=== PATIENT | female | born 1955 | race Caucasian/White ===

== ENCOUNTER 2016-12-25 08:58 | Observation (INO) | payer OTHER ==
[~2016-12-25] VITALS: Ht 167.6 cm; Wt 123.8 kg
[2016-12-25] VITALS (8 sets, daily range): BP systolic 99–134; BP diastolic 46–74
[~2016-12-25 08:58] MED LIST: ALLO300T PO; BUPIVACAINE-EPI 0.25%-1:200000 50 ML VIAL. ONE; CLINDAMYCIN 600MG PREMIX 50 ML IV PRN; GABA-586 PO; HYDR12.53 PO; HYDROmorphone 2 MG/ML VIAL IV PRN; IV RINGERS,LACTATED 1000ML 1,000 ML IV SCH; LIDOCAINE 1% PF 2 ML VIAL. ID PRN; MORPHINE SULFATE 2 MG/ML DISP.SYRIN. IV PRN; ONDANSETRON PF 4 MG/2 ML VIAL. IV PRN; PROCHLORPERAZINE 10 MG/2 ML VIAL. IV PRN; fentaNYL PF VIAL 100 MCG/2 ML VIAL IV PRN
[2016-12-25] MEDS ORDERED: LIDOCAINE 2% PF Vial for OR 5 ML VIAL. ONE (09:18)
[2016-12-25] MEDS ORDERED: DEXAMETHASONE SOD PHOS 20 MG/5 ML VIAL. ONE (09:18)
[2016-12-25] MEDS ORDERED: GLYCOPYRROLATE 1 MG/5 ML VIAL. ONE (09:18)
[2016-12-25] MEDS ORDERED: fentaNYL PF VIAL 100 MCG/2 ML VIAL ONE (09:18)
[2016-12-25] MEDS ORDERED: PROPOFOL 20 ML IV ONE (09:18)
[2016-12-25] MEDS ORDERED: ROCURONIUM 50 MG/5 ML VIAL. ONE ×2 (09:18→11:35)
[2016-12-25] MEDS ORDERED: ONDANSETRON PF 4 MG/2 ML VIAL. ONE (09:18)
[2016-12-25] MEDS ORDERED: SCOPOLAMINE 1.5MG PATCH. TD ONE (10:30)
[2016-12-25] MEDS ORDERED: PHENYLEPHRINE 10 MG/ML VIAL. ONE (11:20)
[2016-12-25] MEDS ORDERED: SEVOFLURANE 61 TO 120 MINUTES. IH ONE (11:52)
[2016-12-25] MEDS ORDERED: ESTROGENS, CONJ VAGINAL CREAM 30GM TUBE. ONE (12:19)
[2016-12-25] MEDS ORDERED: KETOROLAC 30 MG/ML INJ FOR OR. INJ ONE (12:24)
--- NOTE | 2016-12-25 12:38 | PDOC ---
BRIEF OPERATIVE NOTE Date: Dec 25, 2016 Pre-Op Diagnosis complex endometrial hyperplasia, postmenopausal bleeding Post-Op Diagnosis same Procedure Performed lavh and bso Surgeon Emmanuel Water/Wastewater Project Manager Abner Anesthesiologist yes Anesthesia Type: General Blood Loss 50cc IV Fluid see anesthesia Urine Output 275cc- clear. Was intermittently blood tinged during the procedure, but was clear at the end Specimens Obtained uterus, tubes, ovaries Findings see dictation Complications none KENZIE TORRES MD Dec 25, 2016 12:38
--- NOTE | 2016-12-25 12:39 | DISCH ---
DISCHARGE INSTRUCTIONS Condition on Discharge Condition on Discharge: Stable Activity After Discharge Activity Instructions for Disc: Avoid exertion, Progressive ambulation Lifting Instructions after Dis: No heavy lifting, No pulling or pushing, Do not lift >10 pounds Exercise Instruction after Dis: Progress as tolerated Driving Instructions after Dis: No driving for 2 weeks Weight Bearing Status after Di: As tolerated Diet after Discharge Diet after Discharge: Regular Wound Incision Care Wound/Incision Care: Ice to area for comfort, May get incision wet Contacting the DR. after DC Call your doctor for: If your condition worsens Follow-Up Follow up with: 1 week with KENZIE Arce MD Dec 25, 2016 12:39
[2016-12-25] MEDS ORDERED: NALOXONE 0.4 MG/ML VIAL. IV PRN (12:45)
[2016-12-25] MEDS ORDERED: IBUPROFEN 600 MG TABLET. PO PRN (12:45)
[2016-12-25] MEDS ORDERED: HYDROcodone/APAP 5/325MG 1 TAB TABLET PO PRN (12:45)
[2016-12-25] MEDS ORDERED: ONDANSETRON PF 4 MG/2 ML VIAL. IV PRN (12:45)
[2016-12-25] MEDS ORDERED: SIMETHICONE 80 MG TAB.CHEW PO PRN (12:45)
[2016-12-25] MEDS ORDERED: BISACODYL 10 MG SUPP.RECT. PR PRN (12:45)
[2016-12-25] MEDS ORDERED: ZOLPIDEM 5 MG TABLET. PO PRN (12:45)
[2016-12-25] MEDS ORDERED: METOCLOPRAMIDE HCL 10 MG/2 ML VIAL. IV PRN (12:45)
[2016-12-25] MEDS ORDERED: LACTULOSE 20 GM/30 ML SOLUTION. PO PRN (12:45)
[2016-12-25] MEDS ORDERED: HYDROmorphone 2 MG/ML VIAL IM PRN (12:45)
[2016-12-25] MEDS ORDERED: KETOROLAC 30 MG/ML INJ. IV PRN (12:45)
[2016-12-25] MEDS ORDERED: 0.9 % SODIUM CHLORIDE 10 ML DISP.SYRIN. IV PRN (12:45)
[2016-12-25] MEDS ORDERED: HYDROmorphone 2 MG/ML VIAL IV PRN (12:45)
[2016-12-25] MEDS ORDERED: diphenhydrAMINE HCL 25 MG CAPSULE PO PRN (12:45)
[2016-12-25] MEDS ORDERED: CALCIUM CARBONATE 500 MG TAB.CHEW PO PRN (12:45)
[2016-12-25] MEDS ORDERED: diphenhydrAMINE 50 MG/ML VIAL IV PRN (12:45)
[2016-12-25] MEDS ORDERED: MAG HYDROX/ALUMINUM HYD/SIMETH 30 ML ORAL.SUSP PO PRN (12:45)
--- NOTE | 2016-12-25 13:36 | OP ---
DATE OF SURGERY: 12/25/2016 PREOPERATIVE DIAGNOSES: Complex endometrial hyperplasia and postmenopausal bleeding. POSTOPERATIVE DIAGNOSES: Complex endometrial hyperplasia and postmenopausal bleeding. PROCEDURE: LAVH and BSO. SURGEON: Jazlyn Torres MD and Abner. ANESTHESIA: General. ESTIMATED BLOOD LOSS: Approximately 50 mL. INTRAVENOUS FLUIDS: See anesthesia summary. URINE OUTPUT: About 275 mL of clear urine. The urine was intermittently blood tinged during the middle of the procedure, but actually had cleared by the end. SPECIMENS: Uterus, tubes, and ovaries. COMPLICATIONS: None. DESCRIPTION OF PROCEDURE: After informed consent was obtained, the patient was taken to the operating room and given a smooth induction of anesthesia without complication. The patient was placed in David stirrups and her perineum, vagina and abdomen were prepped and draped in the usual sterile fashion. A Pena catheter had been placed. She also received clindamycin and Levaquin prior to the procedure onset. A weighted speculum was placed in the vagina and the anterior lip of the cervix was grasped with a single tooth tenaculum. The cervix was infiltrated at the cervicovaginal junction with 0.25% Marcaine, 10 mL total was used at 2, 4, 8 and 10 o'clock on the cervix. We then placed a uterine manipulator through the cervical os and attached it to the tenaculum. The speculum was then removed. We then went above to place the trocar. I changed gloves before I did this. A 5 mm incision was made just above the umbilicus. A bladeless trocar was placed onto this incision. We had to use the extra long trocar because of the patient's morbid obesity. The patient was then placed in Trendelenburg. After the patient was placed in Trendelenburg she began sliding up the bed, so we actually had to reverse her and pull her back down. This had to actually be done twice during the procedure. We were finally able to find just the right amount of Trendelenburg that would not allow her to move up the bed, but allowed us to still do the procedure. We placed two lateral 5 mm ports in the lateral abdominal wall. This was done under direct visualization, one was on the right, one was on the left. We then proceeded to use the LigaSure to cauterize across the round ligament bilaterally. This ligament was transected and we then created a bladder flap anteriorly. This was also somewhat difficult due to the patient's large amount of fatty bowel that was in her abdominal cavity, it was very difficult to get good visualization. We were able to elevate the tube and ovary on the right up away from the sidewall. We were able to visualize the ureter on the right side, but had more difficulty looking at it on the left side. We were able to cauterize across the IP ligament and transected so that the ovary was free. We then removed the tube and ovary from the sidewall. We then proceeded to cauterize the uterine vessels. Same procedure was carried out on the left side. Once the tube and ovary were free, we again started cauterizing down the sides of the uterine vessels on both sides. The bladder was retracted inferiorly without much difficulty. Once everything was free, we went down below. The speculum was placed back in the vagina and the tenaculum and Valtchev were removed. We placed two Brendon thyroid clamps on the cervix. This was actually very difficult, the patient's vagina was very narrow and very friable. She had several small little vaginal lacerations that had to be repaired at the end due to the retractors. We created a circumferential incision around the cervix using the long-handled knife. We retracted the bladder anteriorly using blunt dissection with a Ray-Abhi. We then entered the posterior peritoneum using sharp dissection. We then used the 2 Jonathon transfixion sutures to clamp, cut and ligate the cardinal uterosacral complex. This was then tacked to the lateral vaginal sidewalls and saved for later use on both sides. We then proceeded to use the vaginal LigaSure down below to cauterize what was left of the uterine arteries and removed the uterus from the pelvis. The uterus was actually very small. It was removed with both ovaries and one tube actually got left behind, but we removed it abdominally later. Once the uterus was removed, the peritoneum was closed with a running pursestring suture of 2-0 Vicryl and then the vaginal cuff was closed with a running locking stitch of 2-0 Vicryl. Again, at this point, we noticed several small vaginal lacerations, which were repaired with interrupted suture of 2-0 Vicryl. The vagina was packed, nothing was bleeding heavily. The packing was more for just some pressure. Packing had Premarin cream on it. We then went back above to irrigate the pelvis. Again, the patient was placed in a little bit of Trendelenburg. Once the cuff was visualized and it was noted to be completely hemostatic, we did irrigate the pelvis. Again, no bleeding was noted. We sprayed Tisseel on all the raw surfaces. At this point, the ports were removed under direct visualization. No bleeding was noted. The port sites were closed with an interrupted suture of 4-0 nylon and infiltrated with anesthetic for patient comfort. We did let the gas escape from the belly first. At this point, the patient tolerated the procedure well. There were no complications. We terminated the procedure. JAZLYN TORRES MD DR: MARILIA/tia JOB#: [id number] / [id number]
[2016-12-25] MEDS: GABAPENTIN 300 MG CAPSULE. PO SCH ×2 (14:00→21:35)
[2016-12-25] MEDS: hydroCHLOROthiazide 12.5 MG CAPSULE PO SCH (14:00)
[2016-12-26] MEDS: oxyCODONE/APAP 5/325 1 TAB TABLET PO PRN ×2 (00:26→06:12)
[2016-12-26 01:59] VITALS: BP 106/47
[2016-12-26 05:57] VITALS: BP 105/51
[2016-12-26] MEDS: GABAPENTIN 300 MG CAPSULE. PO SCH (08:26)
[2016-12-26] MEDS: hydroCHLOROthiazide 12.5 MG CAPSULE PO SCH (08:26)
--- NOTE | 2016-12-26 08:41 | PDOC ---
SURGICAL PROGRESS NOTE Subjective doing well. No complaints. No bleeding and minimal pain. Catheter out and eating regular diet Vital Signs Vital Signs Date Time Temp Pulse Resp B/P (MAP) Pulse Ox O2 Delivery O2 Flow Rate FiO2 12/26/16 06:12 Room Air 12/26/16 05:57 98.1 71 16 105/51 (69) 96 98.1 12/25/16 13:16 10 PATIENT HAS A GANDARA: No General: Alert, Oriented X3, Cooperative, No acute distress Abdomen: Normal bowel sounds, Soft, No tenderness, No hepatosplenomegaly, No masses, Other (incisions c/d/i) Extremities: No clubbing, No cyanosis, No edema, Normal pulses, No tenderness/ swelling Labs Laboratory Tests Test 12/25/16 16:50 Hematocrit 41.8 % (36.0-47.0) Laboratory Tests Test 12/25/16 16:50 Hematocrit 41.8 % (36.0-47.0) I have reviewed the following labs, vitals Assessment/Plan POD #1 from [facility] and bso for complex endometrial hyperplasia. Plan is for discharge today Problems: KENZIE TORRES MD Dec 26, 2016 08:41
--- NOTE | 2016-12-26 08:44 | PDOC3 ---
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 Albert is a 61 old F who presented with complex endometrial hyperplasia seen on D and C specimen. She presented yesterday for lavh and bso. She underwent the planned procedure without difficulty. She is doing well. She is ambulating and tolerating her diet. She is ready for discharge. Hct is 41 post surgery. Discharge Information Scheduled Allopurinol (Allopurinol), 1 TAB PO DAILY, (Reported) Gabapentin (Gabapentin), 300 MG PO TID, (Reported) Hydrochlorothiazide (Hydrochlorothiazide Capsule ), 1 CAP PO DAILY, (Reported ) KENZIE TORRES MD Dec 26, 2016 08:44
[2016-12-26] MEDS ORDERED: ALLOPURINOL 300 MG TABLET. PO SCH (09:00)
[2016-12-26 11:48] VITALS: BP 121/61
--- NOTE | 2016-12-29 14:21 | PATHOLOGY ---
PATHOLOGY REPORT * * * * * * * * FINAL DIAGNOSIS: Uterus with attached right fallopian tube and ovary and left ovary and detached left fallopian tube, laparoscopic-assisted vaginal hysterectomy with bilateral salpingo-oophorectomy: - Complex and focal atypical endometrial hyperplasia. - Nabothian cysts and small hemangioma, uterine cervix. - Leiomyomas (2) uterine corpus, small. - Adenomyosis, uterine corpus, focal. - Congestion and involutional changes of bilateral fallopian tubes. - Involutional changes of bilateral ovaries with small serous inclusion cysts and calcifications of left ovary. COMMENT: The entire endometrium is submitted for histologic evaluation. There is complex and focal atypical endometrial hyperplasia. There is no evidence of malignancy. (JPM:mm; 12/29/2016) REPORT ELECTRONICALLY SIGNED BY: Benito Edge M.D. DATE/TIME: 12/29/2016 14:19 * * * * * * * * GROSS PATHOLOGY: The specimen is received in formalin labeled "Carlton Rai, uterus with cervix and bilateral fallopian tubes and ovaries". Received is a 38 g, 7.4 x 3.5 x 2.7 cm uterus with attached cervix with attached left ovary weighing 1 g, attached right adnexa weighing 3 g, and detached left fallopian tube weighing 2 g. The uterine serosa is pink-bean and smooth in appearance. The 1.0 cm cervical os is surrounded by pink-bean, moderately disrupted ectocervical mucosa. The uterus is oriented using the ovarian placement and the anterior paracervical margin is inked black. The uterus is opened laterally to reveal a pink-bean endocervical canal measuring 2.8 cm in length. The endometrial cavity is triangular measuring 3.4 cm in length by 2.2 cm in width. The endometrium is pink-bean, glistening to shaggy in appearance and measures 0.1 cm in thickness. Serial sectioning reveals a bean-pink, trabeculated myometrium measuring up to 1.5 cm in thickness displaying 2 intramural fibroids measuring 0.3 cm each. The left adnexa consists of a detached fimbriated fallopian tube measuring 4.7 cm in length by up to 0.5 cm in diameter and a 1.4 x 1.2 x 0.8 cm ovary. Sectioning through the fallopian tube reveals a patent lumen and displays an attached paratubal cyst measuring 0.2 cm. Sectioning through the ovary reveals pale bean, normal ovarian stroma. The right adnexa consists of a fimbriated fallopian tube measuring 4.5 cm in length by up to 0.6 cm in diameter attached to a 1.8 x 1.1 x 0.8 cm ovary. Sectioning through the fallopian tube reveals a patent lumen and the fallopian tube appears grossly unremarkable. Sectioning through the ovary reveals pale bean, normal ovarian stroma. The entire endometrium and additional farm loan representative sections are submitted as follows: A1 12:00 and 6:00 cervix A2 full-thickness cross section of anterior endomyometrium with intramural fibroids A3-A4 remainder of anterior endometrium A5 full-thickness cross section of posterior endomyometrium A6-A8 remainder of posterior endometrium A9 left adnexa A10 right adnexa. (CAA; 12/26/2016) INITIAL CPT CODE(S): A; 13346 Professional services performed [place] [facility] [place] [address] Technical services performed by [facility] at [address] [place] [address], [address] [address]. SPECIMEN(S) RECEIVED: A.Uterus with cervix and bilateral fallopian tubes and ovaries CLINICAL HISTORY: Complex endometrial hyperplasia, postmenopausal bleeding PATIENT: CARLTON RAI /AGE: 709/09/1955 (Age: 61) PATIENT #: [id number] ALT CASE #: SPECIMEN COLLECTION DATE: 12/25/2016 SPECIMEN RECEIVED DATE: 12/25/2016 [facility] - [address] [place] [address] - PHONE: [phone] * * * END OF REPORT * * *
== END 2016-12-26 14:28 | disposition home or self-care (01) ==
LOC: SURG 08:58 → 3 NORTH 13:39
PROVIDERS: ADMIT Obstetrics & Gynecology; ATTEND Obstetrics & Gynecology
DX: N85.02 Endometrial intraepithelial neoplasia [EIN] (principal); N95.0 Postmenopausal bleeding; E66.01 Morbid (severe) obesity due to excess calories; E03.9 Hypothyroidism, unspecified; E78.5 Hyperlipidemia, unspecified
CPT/HCPCS: 36415; 58552; 85014; 86850; 86900; 86901; 88309; 96374; 96375; C1769; G0378; G0379; J1100; J1885; J1956; J2405; J2704; J3010; J3490; J7030; J7120; J2001

== ENCOUNTER → 2017-04-09 | Outpatient (CLI) | payer BC | END | disposition home or self-care (01) | LOC: KCIC MAMMO 09:41 | DX: Z12.31 Encounter for screening mammogram for malignant neoplasm of breast (principal) | CPT/HCPCS: 77067 ==

== ENCOUNTER → 2018-06-16 | Outpatient (CLI) | payer BC ==
[~2018-06-16] MED LIST changes: -BUPIVACAINE-EPI 0.25%-1:200000 50 ML VIAL. ONE; -CLINDAMYCIN 600MG PREMIX 50 ML IV PRN; -GABA-586 PO; +GABA300C18 PO; -HYDR12.53 PO; +HYDR12.575 PO; -HYDROmorphone 2 MG/ML VIAL IV PRN; -IV RINGERS,LACTATED 1000ML 1,000 ML IV SCH; -LIDOCAINE 1% PF 2 ML VIAL. ID PRN; -MORPHINE SULFATE 2 MG/ML DISP.SYRIN. IV PRN; -ONDANSETRON PF 4 MG/2 ML VIAL. IV PRN; -PROCHLORPERAZINE 10 MG/2 ML VIAL. IV PRN; -fentaNYL PF VIAL 100 MCG/2 ML VIAL IV PRN
--- NOTE | 2018-06-16 16:44 | KCIC ---
Bilateral digital screening mammograms with 3-D tomosynthesis: Reason for examination: Routine screening. Comparison is made to previous studies dated 04/09/2017 and 01/09/2016. Bilateral mammograms in CC and oblique projections were obtained with 2-D imaging and 3-D tomosynthesis imaging on a [employer] Inspiration unit and reviewed on the workstation. Interpretation was made with the benefit of CAD. The skin and nipples show no abnormalities. No abnormal axillary lymph nodes are seen. The breast parenchyma is predominantly fatty. (Breast density: Category A.) There are no dominant masses, suspicious calcifications or architectural distortion. Impression: No evidence of malignancy. Recommend routine screening. BI-RAD Category 1: Negative. "Our facility is accredited by the [employer] Mammography Program." This patient's information has been entered into a reminder system for the patient to be notified with the results of her examination and a target date for the next mammogram. Electronically signed by: Jessica Martínez MD (06/16/2018 4:41 PM) [id number]
== END | disposition home or self-care (01) ==
LOC: KCIC MAMMO 09:37
PROVIDERS: ATTEND Family Medicine
DX: Z12.31 Encounter for screening mammogram for malignant neoplasm of breast (principal); R92.8 Other abnormal and inconclusive findings on diagnostic imaging of breast
CPT/HCPCS: 77063; 77067

== ENCOUNTER → 2019-04-21 | Outpatient (CLI) | payer MEDICARE ==
--- NOTE | 2019-04-21 09:57 | KCIC ---
Indication: Postmenopausal screening for osteoporosis. COMPARISON: None available. Bone Density: -BMD: (g/cm2) - AP Spine Total (L1-L4).......... 1.422. - Total left Hip................. 1.133. T-Score: - AP Spine Total (L1-L4)......... 3.4. - Total left Hip................. 1.6. Z-Score: - AP Spine Total (L1-L4).......... 5.2. - Total left Hip................. 2.8. World Health Organization criteria for BMD interpretation classify patients as Normal (T-score at or above -1.0), Osteopenic (T-score between -1.0 and -2.5), or Osteoporotic (T-score at or below -2.5). Impression: 1. AP Spine Total L1-L4--- normal.. 2. Total left Hip--- normal. Electronically signed by: Jordin Duran MD (04/21/2019 9:54 AM) [place]
== END | disposition home or self-care (01) ==
LOC: KCIC DEXA 08:56
PROVIDERS: ATTEND Family Medicine
DX: Z13.820 Encounter for screening for osteoporosis (principal); Z78.0 Asymptomatic menopausal state
CPT/HCPCS: 77080

== ENCOUNTER → 2019-10-20 | Outpatient (CLI) | payer MEDICARE ==
--- NOTE | 2019-10-21 17:15 | KCIC ---
BILATERAL SCREENING MAMMOGRAM History: Routine screening. Comparison: Bilateral mammogram June 16, 2018. Technique: Routine bilateral digital mammogram views were obtained. Findings: Breast Tissue Density A : The breasts are almost entirely fatty. There are no dominant masses, suspicious microcalcifications, or architectural distortion. IMPRESSION: No mammographic evidence of malignancy. Recommend routine screening. BI-RADS category 1: Negative. The images were reviewed with computer aided detection. Patient information is entered into the reminder system with a target due date for the next screening mammogram. Mammography is the most sensitive method for finding small breast cancers, but it does not detect them all and is not a substitute for careful clinical examination. A negative mammogram does not negate a clinically suspicious finding and should not result in delay in biopsying a clinically suspicious abnormality. "Our facility is accredited by the [employer] Mammography [employer]." Electronically signed by: Wilfred Rasmussen MD (10/21/2019 5:12 PM) [email or web address]
== END | disposition home or self-care (01) ==
LOC: KCIC MAMMO 14:21
PROVIDERS: ATTEND Family Medicine
DX: Z12.31 Encounter for screening mammogram for malignant neoplasm of breast (principal)
CPT/HCPCS: 77067

== ENCOUNTER → 2020-12-27 | Outpatient (CLI) | payer MEDICARE ==
--- NOTE | 2020-12-27 12:30 | KCIC ---
Bilateral digital screening mammograms with 3-D tomosynthesis: Reason for examination: Routine screening. Comparison is made to previous studies dated back to 09/08/2014. Bilateral mammograms in CC and oblique projections were obtained with 2-D imaging and 3-D tomosynthes is imaging on a [employer] Inspiration unit and reviewed on the workstation. Interpretation was made with the benefit of CAD. The skin and nipples show no abnormalities. No abnormal axillary lymph nodes are seen. The breast par enchyma is predominantly fatty. (Breast density: Category A.) There are no dominant masses, suspiciou s calcifications or architectural distortion. Scattered punctate calcifications are present. Impression: No evidence of malignancy. Recommend routine screening. BI-RAD Category 2: Benign. "Our facility is accredited by the [employer] Mammography Program." This patient's information has been entered into a reminder system for the patient to be notified wit h the results of her examination and a target date for the next mammogram. Electronically signed by: Jessica Martínez MD (12/27/2020 12:28 PM) [email or web address]
== END ==
LOC: KCIC MAMMO 10:38
PROVIDERS: ATTEND Family Medicine
DX: Z12.31 Encounter for screening mammogram for malignant neoplasm of breast (principal)
CPT/HCPCS: 77063; 77067